=== PATIENT | female | born 1995 | race Hispanic/Latino ===

== ENCOUNTER 2024-07-29 01:06 | Inpatient (IN) | payer SELFPAY ==
[2024-07-29 01:38] LABS: #Basophils 0.03 10x3/uL (0.0-0.2); %Basophils 0.2 % (0.0-1.0); %Eosinophils 0.3 % (0.0-10.0); %Lymphocytes 13.9 % (21.0-51.0); %Monocytes 4.5 % (0.0-10.0); %Neutrophils 80.7 % (42.0-75.0); Hematocrit 33.2 % (36.0-47.0); Hemoglobin 11.4 g/dL (12.0-16.0); Mean Corpuscular HGB CONC 34.3 g/dL (32.0-36.0); Mean Corpuscular Hemoglobin 32.2 pg (27.0-31.0); Mean Corpuscular Volume 93.8 fL (78.0-98.0); Mean Platelet Volume 10.3 fL (7.4-10.4); Platelet Count 237 10x3/uL (130-400); Red Blood Cell (RBC) Count 3.54 mill/uL (4.20-5.40)
[2024-07-29] MEDS ORDERED: Dicyclomine 20 MG TAB ONE (01:49)
[2024-07-29] MEDS ORDERED: Ondansetron ODT 4 MG TAB ONE (01:49)
[2024-07-29 01:52] LABS: ALT (SGPT) 14 U/L (8-55); AST (SGOT) 18 U/L (5-34); Albumin 3.9 g/dL (3.5-5.0); Alkaline Phosphatase 73 U/L (40-110); Anion Gap 13 mmol/L (10-20); BUN (Urea Nitrogen) 15 mg/dL (7.0-18.7); Bilirubin, Total 0.3 mg/dL (0.2-1.2); Calc. Creatinine Clearance 0 mL/min (70-130); Calcium 8.6 mg/dL (7.8-10.44); Carbon Dioxide 20 mmol/L (22-29); Chloride 109 mmol/L (98-107); Estimated GFR 113; Globulin 3.3 g/dL (2.4-3.5); Glucose 124 mg/dL (70-105); Potassium 3.1 mmol/L (3.5-5.1); Protein, Total 7.2 g/dL (6.0-8.3); Sodium 139 mmol/L (136-145)
[2024-07-29 02:01] LABS: BHCG - Serum Negative (NEGATIVE); Pregs Control Background? CLEAR/WHITE (CLR/WHITE); Pregs Control Bar Appear? YES (CONTROL BAR)
[2024-07-29 02:18] LABS: Lipase 21 U/L (8-78)
[2024-07-29 03:41] LABS: Bilirubin Negative (Negative); Blood, Urine Negative (Negative); CAUTI Indications for Culture Pelvic or flank pain; Clarity Clear (Clear); Glucose, Urine (Dipstick) Normal (Negative); Ketone, Urine Trace mg/dL (Negative); Leukocyte Negative Leu/uL (Negative); Nitrite Negative (Negative); Protein, Urine (Dipstick) Negative (Neg-Trace); Specific Gravity, Urine 1.043 (1.002-1.036); Urobilinogen Normal mg/dL (Less than 2)
[2024-07-29 03:42] LABS: Bacteria/HPF 1+ HPF (None Seen); Urine Culture Reflex No No
[2024-07-29] MEDS ORDERED: traMADol HCl 50 MG TAB PO PRN (06:23)
[2024-07-29] MEDS ORDERED: Ondansetron PF 4 MG/2 ML Vial IVP PRN (06:23)
[2024-07-29] MEDS ORDERED: Sodium Chloride 0.9% 1,000 ML IV SCH (06:30)
[2024-07-29] MEDS ORDERED: Piperacillin/Tazobactam 3.375 GM VIAL ONE (06:40)
[2024-07-29] MEDS ORDERED: Midazolam HCl 2 mg/2 ml Vial ONE (09:00)
[2024-07-29] MEDS ORDERED: Ondansetron PF 4 MG/2 ML Vial ONE (09:00)
[2024-07-29] MEDS ORDERED: PHENYLEPHRINE-NS 100 MCG/ML 10 ML SYRINGE ONE (09:00)
[2024-07-29] MEDS ORDERED: PROPOFOL 20 ML ONE (09:00)
[2024-07-29] MEDS ORDERED: Lidocaine 1% PF 5 ML VIAL ONE (09:00)
[2024-07-29] MEDS ORDERED: fentaNYL PF 100 MCG/2 ML SYRINGE ONE (09:00)
[2024-07-29] MEDS ORDERED: Rocuronium Bromide 10 MG/ML (10ML VIAL) ONE (09:00)
[2024-07-29] MEDS ORDERED: Dexamethasone 20 MG/5 ML VIAL ONE (09:00)
[2024-07-29] MEDS ORDERED: Bupivacaine 0.25% HCL 30 ML VIAL ONE (09:04)
[2024-07-29] MEDS ORDERED: EPINEPHrine 1 MG/ML VIAL ONE (09:04)
[2024-07-29] MEDS ORDERED: diphenhydrAMINE 50 MG/ML VIAL ONE (09:28)
[2024-07-29] MEDS ORDERED: SUGAMMADEX SODIUM 200 MG/2 ML VIAL ONE (09:41)
[2024-07-29] MEDS ORDERED: Dexamethasone 4 mg/ml Vial ONE (09:46)
[2024-07-29] MEDS ORDERED: fentaNYL 50 mcg/mL 1 mL Vial ONE (11:33)
[2024-07-29] MEDS: Piperacillin/Tazobactam 3.375 GM in Sodium Chloride 0.9% 100 ML IVPB SCH ×2 (12:22→12:32)
[2024-07-29] MEDS: Acetaminophen 325 MG TAB PO PRN (12:31)
[2024-07-29 12:32] VITALS: BMI 18.0
[2024-07-29 13:01] VITALS: TEMP 98.5
[2024-07-29] MEDS ORDERED: Piperacillin/Tazobactam 2.25 GM in Sodium Chloride 0.9% 100 ML IVPB SCH (14:00)
[2024-07-29] MEDS: Lactated Ringer's 1,000 ML IV SCH (14:45)
[2024-07-29] MEDS: Potassium Chloride 20 MEQ in Premix 1 BAG IVPB SCH (16:38)
[2024-07-29 17:38] VITALS: BP 90/56
[2024-07-30] MEDS ORDERED: FLU (Fluarix Triv) TS24-25(6MOS UP)/PF 45 MCG/0.5 ML Syringe IM ONE (09:00)
== END 2024-07-29 17:35 | disposition home or self-care (01) | DRG 399 ==
LOC: ERS 01:06 → ERHOLD 06:32 → SURG A 12:10
PROVIDERS: ADMIT Specialist; ATTEND Specialist
PROC: 0DTJ4ZZ Resection of Appendix, Percutaneous Endoscopic Approach (ICD-10-PCS; principal; 2024-07-29)
DX: K35.80 Unspecified acute appendicitis (principal); D64.9 Anemia, unspecified
CPT/HCPCS: 36415; 74177; 80053; 81001; 83690; 84703; 85025; 88304; 96361; 96365; A4649; J0171; J0665; J1100; J1200; J2250; J2405; J2543; J2704; J3010; J7120; Q0162